=== PATIENT | male | born 1985 | race Caucasian/White ===

== ENCOUNTER 2017-08-12 20:08 | Emergency (ER) | payer BC, OTHER ==
[2017-08-12 20:28] VITALS: BP 145/84; PULSE 76; TEMP 98.9; BMI 25.8
[2017-08-12 21:15] LABS: URINE APPEARANCE CLEAR; URINE BILIRUBIN NEGATIVE (NEGATIVE); URINE BLOOD NEGATIVE (NEGATIVE); URINE COLOR COLORLESS; URINE GLUCOSE (UA) NEGATIVE (NEGATIVE); URINE KETONE NEGATIVE (NEGATIVE); URINE NITRITE NEGATIVE (NEGATIVE); URINE PROTEIN NEGATIVE (NEGATIVE); URINE UROBILINOGEN NEGATIVE mg/dL (0.2-1.0)
--- NOTE | 2017-08-12 22:26 | PDOC ---
History of Present Illness - General Chief Complaint: Pain, Acute Stated Complaint: BACK PAIN Time Seen by Provider: 08/12/17 22:25 History Source: Patient - History of Present Illness Initial Comments: 08/12/17 22:47 Patient is a 31 y.o. male with a PMH of childhood seizure disorder (on Tegetol from ages [age]) and GERD who presents for 5 day h/o of intermittent L sided flank pain that radiates to his groin. Patient endorse one episode of non- bloody emesis and denies any fevers, chills, constipation or diarrhea. Patient notes he was evaluated by his PCP earlier this week and she ordered a U/S, however patient has not been able to obtain a copy of the report and his pain increased in severity prompting his visit to the ED. Surgical: denies Allergies: Penicillin Social: denies cigarettes, (+) alcohol, (+) marijuana, denies other recreational drugs Past History - Past Medical History Allergies/Adverse Reactions: Allergies Allergy/AdvReac Type Severity Reaction Status Date / Time Penicillins Allergy Verified 08/12/17 20:29 Home Medications: Ambulatory Orders Oxycodone HCl/Acetaminophen [Percocet 5-325 mg Tablet] 1 tab PO Q6H PRN #12 tablet MDD 4 tablets 08/13/17 - Suicide/Smoking/Psychosocial Hx Smoking History: Never smoked Review of Systems - Review of Systems Constitutional: No: Chills, Fever Respiratory: No: Cough, Shortness of Breath Cardiac (ROS): No: Chest Pain, Irregular Heart Rate, Lightheadedness, Palpitations ABD/GI: Yes: Abdominal cramping. No: Constipated, Diarrhea, Nausea, Vomiting : Yes: Flank Pain All Other Systems: Reviewed and Negative *Physical Exam - Vital Signs Last Vital Signs Temp Pulse Resp BP Pulse Ox 98.9 F 76 16 145/84 98 08/12/17 20:21 08/12/17 20:21 08/12/17 20:21 08/12/17 20:21 08/12/17 20:21 - Physical Exam General Appearance: Yes: Nourished, Appropriately Dressed Respiratory/Chest: positive: Lungs Clear Cardiovascular: positive: S1, S2 Gastrointestinal/Abdominal: positive: Normal Bowel Sounds, Soft. negative: Tender, Guarding, Rebound, Tenderness, Hernia, Mass Integumentary: positive: Normal Color, Dry, Warm Neurologic: positive: Fully Oriented, Alert ED Treatment Course - LABORATORY CBC & Chemistry Diagram: 08/12/17 22:40 08/12/17 22:40 - ADDITIONAL ORDERS Additional order review: Laboratory Results 08/12/17 21:05 Urine Color Colorless Urine Appearance Clear Urine pH 6.0 Urine Protein Negative Urine Glucose (UA) Negative Urine Ketones Negative Urine Blood Negative Urine Nitrite Negative Urine Bilirubin Negative Urine Urobilinogen Negative Medical Decision Making - Medical Decision Making 08/13/17 01:33 Patient is a 31 y.o. male with a PMH of GERD who presents with a 5 day h/o flank pain that radiates into his groin as well as 1 episode of emesis. Initial DDx is for nephrolithiasis vs. viral gastritis vs. UTI vs. pancreatitis (less likely however patient has h/o significant weekend binge drinking) PLAN 1. UA 2. CBC, CMP, Lipase 3. Spiral CT 08/13/17 01:36 UA shows no hematuria, nitrite negative, leukocyte esterase negative. Lipase wnL. CTA negative for obstructive uropathy, renal/uteral/bladder calculi. Patient given copy of CTA and discharged home with instruction to follow up with PCP and referral to gastroenterology. *DC/Admit/Observation/Transfer Diagnosis at time of Disposition: Abdominal pain - Discharge Dispostion Disposition: HOME Condition at time of disposition: Good Admit: No - Prescriptions Prescriptions: Oxycodone HCl/Acetaminophen [Percocet 5-325 mg Tablet] 1 tab PO Q6H PRN #12 tablet MDD 4 tablets PRN Reason: Pain Level 6-10 - Referrals Referrals: Isiah Rodriguez MD [Staff Physician] - - Patient Instructions Printed Discharge Instructions: DI for Kidney Stones, DI for Abdominal Pain- Adult Additional Instructions: A copy of your ultrasound report has been provided to you, please follow up with your PCP in the next 1 week. In addition, a referral to gastroenterology has been provided should your pain persist. Please return to the Emergency Department should you experience any worsening or concerning symptoms.
--- NOTE | 2017-08-12 22:47 | PDOC ---
Attending Attestation - Resident Resident Name: Valeria Albarado - ED Attending Attestation I have performed the following: I have examined & evaluated the patient, The case was reviewed & discussed with the resident, I agree w/resident's findings & plan, Exceptions are as noted <Mike Kunz - Last Filed: 08/12/17 22:47> - HPI HPI: 08/12/17 23:03 Pt is a 31 yo M with a PMHx of Seizure disorder (last at age 14) who presents to the ED with L flank pain for the past five days. Patient reports drinking 5 days ago and suddenly experienced this pain. Later, the patient stopped drinking alcohol and the pain resolved. Today, the patient reports the pain returned. He describes the pain as sharp, constant, exacerbated by food, radiating to suprapubic area. Patient attempted OTC Motrin however denies any relief. Patient denies any fever, chills, nausea, vomiting, diarrhea, constipation. - Physicial Exam PE: 08/12/17 23:03 GENERAL: Well developed, well nourished. Awake and alert. In no acute distress. HEENT: Normocephalic, atraumatic. PERRLA, EOMI. No conjunctival pallor. Sclerae are non -icteric. Moist mucous membranes. Oropharynx is clear. NECK: Supple. Full ROM. No JVD. Carotid pulses 2+ and symmetric, without bruits. No thyromegaly. No lymphadenopathy. CARDIOVASCULAR: Regular rate and rhythm. No murmurs, rubs, or gallops. Distal pulses are 2+ and symmetric. PULMONARY: No evidence of respiratory distress. Lungs clear to auscultation bilaterally. No wheezing, rales or rhonchi. ABDOMINAL: + L CVA tenderness. Soft. Non-tender. Non-distended. No rebound or guarding. No organomegaly. Normoactive bowel sounds. MUSCULOSKELETAL Normal range of motion at all joints. No bony deformities or tenderness. No CVA tenderness. EXTREMITIES: No cyanosis. No clubbing. No edema. No calf tenderness. SKIN: Warm and dry. Normal capillary refill. No rashes. No jaundice. NEUROLOGICAL: Alert, awake, appropriate. Cranial nerves 2-12 intact. No deficits to light touch and temperature in face, upper extremities and lower extremities. No motor deficits in the in face, upper extremities and lower extremities. Normoreflexic in the upper and lower extremities. Normal speech. Toes are downgoing bilaterally. Gait is normal without ataxia. PSYCHIATRIC: Cooperative. Good eye contact. Appropriate mood and affect. - Medical Decision Making 08/12/17 23:03 Documentation prepared by Yoon Conte, acting as medical translator for Mike Kunz DO. <Yoon Conte - Last Filed: 08/12/17 23:04>
[2017-08-12 22:57] LABS: BASOPHIL 0.7 % (0-2.0); EOSINOPHIL 2.4 % (0-4.5); MCH 32.6 pg (25.7-33.7); MCHC 35.3 g/dl (32.0-35.9); MEAN CELL VOLUME 92.3 fl (80-96); MEAN PLT VOLUME 7.9 fl (7.5-11.1); NEUTROPHILS 57.4 % (42.8-82.8); PLATELET COUNT 216 K/MM3 (134-434); RDW 12.6 % (11.9-15.9); WHITE BLOOD COUNT 6.5 K/mm3 (4.0-10.0)
[2017-08-12] MEDS ORDERED: KETOROLAC TROMETHAMINE 30 MG/1 ML VIAL IM ONE (23:08)
[2017-08-12] MEDS ORDERED: KETOROLAC TROMETHAMINE 30 MG/1 ML VIAL ONE (23:08)
[2017-08-12 23:18] LABS: ALBUMIN 4.3 g/dl (3.4-5.0); ALK PHOS 76 U/L (45-117); ANION GAP 11 (8-16); BILIRUBIN,TOTAL 0.4 mg/dL (0.2-1.0); CALCIUM 8.7 mg/dL (8.5-10.1); CO2 27 mmol/L (21-32); GLUCOSE,RANDOM 88 mg/dL (74-106); SGOT/AST 14 U/L (15-37); SGPT/ALT 22 U/L (12-78); TOT PROT 7.9 g/dl (6.4-8.2)
[2017-08-13 10:16] LABS: URINE LEUK ESTERASE Negative (NEGATIVE)
== END 2017-08-13 01:42 | disposition home or self-care (01) ==
LOC: JER 20:08
PROC: 3E0233Z Introduction of Anti-inflammatory into Muscle, Percutaneous Approach (ICD-10-PCS; principal; 2017-08-12)
DX: R10.32 Left lower quadrant pain (principal); Z86.69 Personal history of other diseases of the nervous system and sense organs
CPT/HCPCS: 36415; 74176; 80053; 81003; 83690; 85025; 99282-25

== ENCOUNTER 2018-10-19 18:02 | Emergency (ER) | payer BC ==
[2018-10-19 18:37] VITALS: BP 119/73; PULSE 70; TEMP 97.9; BMI 28.1
[2018-10-19] MEDS ORDERED: ONDANSETRON 4 MG/2 ML VIAL IVPUSH ONE (20:17)
[2018-10-19] MEDS ORDERED: FAMOTIDINE 20 MG/50 ML IVPB 20 MG/50 ML MG IVPB ONE ×2 (20:17→20:38)
[2018-10-19] MEDS ORDERED: ONDANSETRON 4 MG/2 ML VIAL ONE (20:38)
[2018-10-19 21:05] LABS: ALK PHOS 61 U/L (45-117); ANION GAP 6 MMOL/L (8-16); BILIRUBIN,TOTAL 0.7 mg/dL (0.2-1); BLOOD UREA NITROGEN 15 mg/dL (7-18); CALCIUM 8.2 mg/dL (8.5-10.1); CHLORIDE 102 mmol/L (98-107); CO2 27 mmol/L (21-32); GLUCOSE,RANDOM 82 mg/dL (74-106); POTASSIUM 3.9 mmol/L (3.5-5.1); SGOT/AST 23 U/L (15-37); SGPT/ALT 31 U/L (13-61); SODIUM 136 mmol/L (136-145); TOT PROT 7.2 g/dl (6.4-8.2)
[2018-10-19 21:27] LABS: HEMATOCRIT 42.2 % (35.4-49); HEMOGLOBIN 14.3 GM/dL (11.7-16.9); MCH 32.1 pg (25.7-33.7); MCHC 33.9 g/dl (32.0-35.9); MEAN CELL VOLUME 94.6 fl (80-96); PLATELET COUNT 217 K/MM3 (134-434); RBC 4.46 M/mm3 (4.00-5.60); RDW 12.6 % (11.9-15.9); WHITE BLOOD COUNT 5.2 K/mm3 (4.0-10.0)
[2018-10-19 21:30] LABS: BASO % 1.1 % (0-2.0); EOS % 3.8 % (0-4.5); MONO % 11.5 % (3.8-10.2); NEUT % 40.6 % (42.8-82.8)
[2018-10-19] MEDS ORDERED: MAG HYDROX/AL HYDROX/SIMETH 30 ML UNIT-DOSE CUP PO ONE ×2 (21:40→22:07)
--- NOTE | 2018-10-19 22:03 | PDOC ---
History of Present Illness - General History Source: Patient Exam Limitations: No Limitations <Brook Irene - Last Filed: 10/19/18 22:27> <Mirna Moise - Last Filed: 10/20/18 02:23> - General Chief Complaint: Chest Pain Stated Complaint: CHEST PAIN Time Seen by Provider: 10/19/18 19:57 Past History - Past Medical History COPD: No - Suicide/Smoking/Psychosocial Hx Smoking History: Unknown if ever smoked Have you smoked in the past 12 months: No Substance Use Type: None <Brook Irene - Last Filed: 10/19/18 22:27> <Mirna Moise - Last Filed: 10/20/18 02:23> - Past Medical History Allergies/Adverse Reactions: Allergies Allergy/AdvReac Type Severity Reaction Status Date / Time Penicillins Allergy Verified 10/19/18 18:34 Home Medications: Ambulatory Orders Acetaminophen [Tylenol] 650 mg PO PRN 10/19/18 Pantoprazole Sodium [Protonix] 40 mg PO DAILY #20 tablet. 10/19/18 *Physical Exam - Physical Exam General Appearance: No: Apparent Distress Respiratory/Chest: positive: Lungs Clear, Normal Breath Sounds. negative: Chest Tender, Respiratory Distress Cardiovascular: positive: Regular Rhythm, Regular Rate, S1, S2. negative: Murmur Gastrointestinal/Abdominal: positive: Normal Bowel Sounds, Soft. negative: Tender, Distended, Guarding, Rebound Integumentary: positive: Normal Color Neurologic: positive: Fully Oriented, Alert, Normal Mood/Affect <Brook Irene - Last Filed: 10/19/18 22:27> - Vital Signs Last Vital Signs Temp Pulse Resp BP Pulse Ox 97.9 F 70 18 119/73 99 10/19/18 18:35 10/19/18 18:35 10/19/18 18:35 10/19/18 18:35 10/19/18 18:35 - Procedure Monitoring Vital Signs: Procedure Monitoring Vital Signs Temperature 97.9 F 10/19/18 18:35 Pulse Rate 70 10/19/18 18:35 Respiratory Rate 18 10/19/18 18:35 Blood Pressure 119/73 10/19/18 18:35 O2 Sat by Pulse Oximetry (%) 99 10/19/18 18:35 ED Treatment Course - LABORATORY CBC & Chemistry Diagram: 10/19/18 20:28 10/19/18 20:28 <Brook Irene - Last Filed: 10/19/18 22:27> - LABORATORY CBC & Chemistry Diagram: 10/19/18 20:28 10/19/18 20:28 <Mirna Moise - Last Filed: 10/20/18 02:23> - ADDITIONAL ORDERS Additional order review: Laboratory Results 10/19/18 20:28 Sodium 136 Potassium 3.9 Chloride 102 Carbon Dioxide 27 Anion Gap 6 L BUN 15 Creatinine 1.0 Creat Clearance w eGFR > 60 Random Glucose 82 Calcium 8.2 L Total Bilirubin 0.7 AST 23 ALT 31 Alkaline Phosphatase 61 Troponin I < 0.02 Total Protein 7.2 Albumin 4.0 10/19/18 20:28 RBC 4.46 MCV 94.6 MCHC 33.9 RDW 12.6 MPV 8.0 Neutrophils % 40.6 L D Lymphocytes % 43.0 H D Monocytes % 11.5 H Eosinophils % 3.8 Basophils % 1.1 - Medications Given in the ED: ED Medications Discontinued Medications Generic Name Dose Route Start Last Admin Trade Name Freq PRN Reason Stop Dose Admin Famotidine/Sodium Chloride 20 mg in 50 mls @ 100 mls/hr 10/19/18 20:17 20:43 Pepcid 20 Mg Premixed Ivpb - IVPB 10/19/18 20:46 100 mls/hr ONCE ONE Administration Ondansetron HCl 4 mg 10/19/18 20:17 10/19/18 20:43 Zofran Injection IVPUSH 10/19/18 20:18 4 mg ONCE ONE Administration Medical Decision Making <Brook Irene - Last Filed: 10/19/18 22:27> <Mirna Moise - Last Filed: 10/20/18 02:23> - Medical Decision Making 33 y/o M hx of seizures and GERD (conditions from childhood; no longer on any meds for either condition for years) presents with burning substernal CP since 3 PM, which is constant in nature along with 5-6 episodes of NBNB emesis. Patient took some Tylenol and Pepto-Bismol without relief in sxs. Mentions had some alcohol last night in celebration for New Years [place] along with sniffing some cocaine. Mentions only drinks alcohol socially and cocaine rarely ( recreationally). Denies smoking. Denies FH of CAD or SC. EKG done 8:30 PM shows NSR at 61 bpm, slight T wave flattening in lead III, no ectopy CXR reviewed and neg Labs unremarkable Patient given Pepcid, Maalox and Zofran Less suspicious for ACS given no cardiac risk factors; last use of cocaine was last night and EKG nonischemic with neg trop Patient otherwise appears well; likely GERD/gastritis (flared from use of alcohol/drugs) Advised f/u with his PCP for further care 10/19/18 21:57 (Brook Irene) 10/20/18 02:21 I, Mirna Rutherford, attest that I agree with the mid level provider's assessment and management of this case (Mirna Moise) *DC/Admit/Observation/Transfer - Discharge Dispostion Decision to Admit order: No <Brook Irene - Last Filed: 10/19/18 22:27> <Mirna Moise - Last Filed: 10/20/18 02:23> Diagnosis at time of Disposition: GERD (gastroesophageal reflux disease) Qualifiers: Esophagitis presence: esophagitis presence not specified Qualified Code(s): K21.9 - Gastro-esophageal reflux disease without esophagitis - Discharge Dispostion Disposition: HOME Condition at time of disposition: Good - Prescriptions Prescriptions: Pantoprazole Sodium [Protonix] 40 mg PO DAILY #20 tablet.dr - Patient Instructions Printed Discharge Instructions: DI for Gastroesophageal Reflux Disease (GERD), DI for Gastritis, DI for Chest Pain, GERD Diet Additional Instructions: Thank you for choosing [facility]. It was a pleasure taking care of you. Likely your symptoms are from acid reflux vs gastritis You were prescribed Protonix to take as needed to help with your symptoms Follow-up with your PCP, in 3 days. Return to the Emergency Department if your symptoms worsen or persist, you have fever, shortness of breath, chest pain, severe abdominal pain, vomiting or other concerning symptoms.
[2018-10-19] MEDS ORDERED: MAG HYDROX/AL HYDROX/SIMETH 30 ML UNIT-DOSE CUP ONE (22:53)
--- NOTE | 2018-10-20 18:58 | EKG ---
Test Reason : Blood Pressure : / mmHG Vent. Rate : 061 BPM Atrial Rate : 061 BPM P-R Int : 146 ms QRS Dur : 086 ms QT Int : 412 ms P-R-T Axes : 060 011 024 degrees QTc Int : 414 ms NORMAL SINUS RHYTHM WITH SINUS ARRHYTHMIA NORMAL ECG NO PREVIOUS ECGS AVAILABLE Confirmed by JACINTO VASQUES, DEE ([id number]) on 10/20/2018 6:58:02 PM Referred By: Confirmed By:DEE CASEY MD
--- NOTE | 2018-10-20 18:59 | EKG ---
Test Reason : Blood Pressure : / mmHG Vent. Rate : 083 BPM Atrial Rate : 083 BPM P-R Int : 146 ms QRS Dur : 084 ms QT Int : 370 ms P-R-T Axes : 066 014 030 degrees QTc Int : 434 ms POOR DATA QUALITY, INTERPRETATION MAY BE ADVERSELY AFFECTED NORMAL SINUS RHYTHM NORMAL ECG NO PREVIOUS ECGS AVAILABLE Confirmed by DEE CASEY MD ([id number]) on 10/20/2018 6:59:02 PM Referred By: Confirmed By:DEE CASEY MD
== END 2018-10-19 23:06 | disposition home or self-care (01) ==
LOC: JER 18:02
PROC: 3E033GC Introduction of Other Therapeutic Substance into Peripheral Vein, Percutaneous Approach (ICD-10-PCS; principal; 2018-10-19)
DX: K21.9 Gastro-esophageal reflux disease without esophagitis (principal)
CPT/HCPCS: 36415; 71046-TC-FY; 80053; 84484; 85025; 93005; 93010; 99283-25